=== PATIENT | female | born 1995 | race Caucasian/White ===

== ENCOUNTER 2020-12-19 11:32 | Emergency (ER) | payer SELFPAY ==
[~2020-12-19] VITALS: Ht 154.9 cm; Wt 68.1 kg
[2020-12-19 11:37] VITALS: BP 158/90
--- NOTE | 2020-12-19 11:40 | ED EENT ---
History of Present Illness General Chief Complaint: Dental Problems/Pain Stated Complaint: DENTAL PAIN History of Present Illness Date Seen by Provider: Dec 19, 2020 Time Seen by Provider: 11:40 Initial Comments 25-year-old female presents with dental pain in the right side of her jaw. A little bit of pain into the TMJ joint. Has been going on for couple days. She tried some ibuprofen. Patient reports that she cannot get to the dentist right now. She has no other systemic complaints. Allergies and Home Medications Allergies Coded Allergies: No Known Drug Allergies (Unverified , 12/19/20) Home Medications Amoxicillin 500 Mg Capsule, 500 MG PO TID Prescribed by: MYKE GOMEZ on 12/19/20 1148 Naproxen 500 Mg Tablet, 500 MG PO BID Prescribed by: MYKE GOMEZ on 12/19/20 1148 Tramadol HCl 50 Mg Tablet, 50 MG PO Q12H PRN for PAIN Prescribed by: MYKE GOMEZ on 12/19/20 1149 Patient Home Medication List Home Medication List Reviewed: Yes Review of Systems Review of Systems Constitutional: see HPI Eyes: No Symptoms Reported Ears: No Symptoms Reported Nose: no symptoms reported Mouth: see HPI Throat: no symptoms reported Respiratory: no symptoms reported Cardiovascular: no symptoms reported Gastrointestinal: no symptoms reported Musculoskeletal: no symptoms reported Skin: no symptoms reported Past Kwwocle-Chbmfm-Ejmdhe Hx Past Med/Social Hx: Reviewed Nursing Past Med/Soc Hx Physical Exam Vital Signs Vital Signs - First Documented 12/19/20 11:37 Temp 36.9 Pulse 117 Resp 16 B/P (MAP) 158/90 (112) Pulse Ox 97 O2 Delivery Room Air Height, Weight, BMI Height: '" Weight: lbs. oz. kg; BMI Method: General Appearance: WD/WN, no apparent distress Eyes: bilateral eye normal inspection, bilateral eye PERRL Ears: bilateral ear auricle normal Nose: normal inspection Mouth/Throat: dental tenderness Neck: full range of motion Cardiovascular: normal peripheral pulses, regular rate, rhythm Respiratory: chest non-tender, lungs clear, normal breath sounds Progress/Results/Core Measures Results/Orders Vital Signs/I&O 12/19/20 11:37 Temp 36.9 Pulse 117 Resp 16 B/P (MAP) 158/90 (112) Pulse Ox 97 O2 Delivery Room Air Departure Impression Primary Impression: Dental caries Additional Impression: Pain, dental Disposition: 01 HOME, SELF-CARE Condition: Stable Departure-Patient Inst. Referrals: NO,LOCAL PHYSICIAN (PCP/Family) Primary Care Physician Patient Instructions: Dental Pain, TMJ Exercises, Temporomandibular Joint (TMJ) Disorders (DC), Tooth Decay, Adult (DC) Add. Discharge Instructions: Follow-up with the dentist as soon as possible for further evaluation All discharge instructions reviewed with patient and/or family. Voiced understanding. Scripts Tramadol HCl (Tramadol HCl) 50 Mg Tablet 50 MG PO Q12H PRN for PAIN for 3 Days, #6 TAB 0 Refills . Prov: MYKE GOMEZ DO 12/19/20 Naproxen (Naprosyn) 500 Mg Tablet 500 MG PO BID, #30 TAB 0 Refills . Prov: HILARY GOMEZR Brianda DO 12/19/20 Amoxicillin (Amoxicillin) 500 Mg Capsule 500 MG PO TID, #21 CAP 0 Refills . Prov: MYKE GOMEZ DO 12/19/20 MYKE GOMEZ DO Dec 19, 2020 11:40
[2020-12-19] MEDS ORDERED: AMOX500C2 PO ×2 (11:48→12:03)
[2020-12-19] MEDS ORDERED: NAPR-1071 PO ×2 (11:48→12:03)
[2020-12-19] MEDS ORDERED: TRM50T PO ×2 (11:48→12:03)
== END 2020-12-19 11:53 | disposition home or self-care (01) ==
LOC: ER FS 11:35
DX: K02.9 Dental caries, unspecified (principal)
CPT/HCPCS: 99282

== ENCOUNTER 2021-08-25 19:09 | Emergency (ER) | payer SELFPAY ==
[~2021-08-25] VITALS: Ht 152 cm; Wt 73.8 kg
[~2021-08-25 19:09] MED LIST: AMOX500C2 PO; NAPR-1071 PO; TRM50T PO
[2021-08-25] MEDS ORDERED: RX-TOBRAMYCIN (TOBREX) 0.3% OP OINT 3.5 GM TUBE OU STA (19:25)
--- NOTE | 2021-08-25 19:39 | ED EENT ---
History of Present Illness General Chief Complaint: Eye Problems Stated Complaint: LT EYE GLUED SHUT Nursing Triage Note: Pt reports she was opening a super glue bottle and had some spray into her left eye. Pt did wash left eye out with water but does reports she feels like some is in her eye. Visual check of left eye is 20/20. Source: patient, family History of Present Illness Date Seen by Provider: Aug 25, 2021 Time Seen by Provider: 19:16 Initial Comments 26-year-old female presenting with superglue that had gotten into her left eye. She did try washing her eye out but still felt like there was something on her eye. Her visual acuity is 20/20 in the left eye. She feels like there is some mild blurred vision. She has no other injuries. She denies any allergies to medicines. Timing/Duration: abrupt Severity: mild Location: eye (L) Prearrival Treatment: flushing eyes Associated Symptoms: No change in hearing, No cough, No drooling, No ear drainage, No facial pain/swelling, No fever, No malaise, No nasal congestion/drainage, No poor fluid intake, No poor solids intake, No sinus infection, No sore throat, No tooth pain, No voice change Allergies and Home Medications Allergies Coded Allergies: No Known Drug Allergies (Unverified , 12/19/20) Patient Home Medication List Home Medication List Reviewed: Yes Amoxicillin (Amoxicillin) 500 Mg Capsule, 500 MG PO TID Prescribed by: MYKE GOMEZ on 12/19/20 1203 Naproxen (Naprosyn) 500 Mg Tablet, 500 MG PO BID Prescribed by: MYKE GOMEZ on 12/19/20 1203 Tramadol HCl (Tramadol HCl) 50 Mg Tablet, 50 MG PO Q12H PRN for PAIN Prescribed by: MYKE GOMEZ on 12/19/20 1203 Review of Systems Review of Systems Constitutional: see HPI Eyes: See HPI, Blurred Vision; Denies Photophobia Ears: No Symptoms Reported Nose: no symptoms reported Mouth: no symptoms reported Throat: no symptoms reported Respiratory: no symptoms reported Cardiovascular: no symptoms reported Musculoskeletal: no symptoms reported Skin: no symptoms reported Neurological: No Symptoms Reported Past Nkurzfg-Wcdarr-Chkgjl Hx Patient Social History Tobacco Use?: No Use of E-Cig and/or Vaping dev: No Substance use?: No Pt feels they are or have been: No Immunizations Up To Date Second COVID19 Vaccination Moiz: [email or web address] 04/2021 Seasonal Allergies Seasonal Allergies: No Past Medical History Surgeries: No Respiratory: No Cardiac: No Neurological: No Last Menstrual Period: Aug 07, 2021 Genitourinary: No Gastrointestinal: No Musculoskeletal: No Endocrine: No HEENT: No Cancer: No Psychosocial: No Integumentary: No Blood Disorders: No Visual Acuity : Eye Location: Bilaterally Vision Acuity Degree: 20/20 Physical Exam Vital Signs Vital Signs - First Documented 08/25/21 19:10 Temp 36.2 Pulse 115 Resp 17 B/P (MAP) 177/79 (111) Pulse Ox 100 O2 Delivery Room Air Height, Weight, BMI Height: '" Weight: lbs. oz. kg; 31.00 BMI Method: General Appearance: WD/WN, no apparent distress Eyes: bilateral eye PERRL, bilateral eye EOMI Neck: non-tender, full range of motion, supple, normal inspection Cardiovascular: normal peripheral pulses, regular rate, rhythm Neurologic/Psychiatric: alert, oriented x 3 Skin: normal color, warm/dry Progress/Results/Core Measures Results/Orders My Orders Orders - ROXANNE FAN MD Rx-Tobramycin Ophth Oint (Rx-Tobrex Opht (08/25/21 19:25) Vital Signs/I&O 08/25/21 08/25/21 19:10 19:42 Temp 36.2 36.2 Pulse 115 115 Resp 17 17 B/P (MAP) 177/79 (111) 177/79 Pulse Ox 100 100 O2 Delivery Room Air Room Air Blood Pressure Mean: 111 Progress Progress Note : Progress Note pt has no redness to left eye. Her visual acuity is 20/20. will treat with tobramycin eye ointment so she has a petroleum based ointment to help lift and remove the glue from surface of eye and any abrasion can heal. Counseled to avoid bright lights and wear sunglasses if has to go outside in sun. If not improving by Saturday then check with eye doctor for more formal exam. Departure Impression Primary Impression: Foreign body in cornea, left eye, initial encounter Disposition: HOME, SELF-CARE Condition: Stable Departure-Patient Inst. Decision time for Depature: 19:37 Referrals: NO,LOCAL PHYSICIAN (PCP/Family) Primary Care Physician Patient Instructions: Foreign Body in Eye ED Add. Discharge Instructions: Use the eye antibiotic ointment to help loosen and lift the glue from the surface of the eye so it comes off. Apply the eye antibiotic ointment 3 times a day for next 3 days. If you are not seeing improvement by Saturday you could check with eye doctor such as Dr. Ojeda at [facility] or Dr. Iverson at [facility]. Dr. Ojeda is at [address] [place] [address] and the phone number is . All discharge instructions reviewed with patient and/or family. Voiced understanding. ROXANNE FAN MD Aug 25, 2021 19:39
[2021-08-25 19:42] VITALS: BP 177/79
== END 2021-08-25 19:42 | disposition home or self-care (01) ==
LOC: EDUNIT# 19:09 → ER FS 19:11
DX: T15.02XA Foreign body in cornea, left eye, initial encounter (principal)
CPT/HCPCS: 99281